=== PATIENT | male | born 1985 | race Hispanic/Latino ===

== ENCOUNTER 2018-01-11 10:16 | Emergency (ER) | payer BC ==
[2018-01-11 10:22] VITALS: BMI 26.9
[2018-01-11] MEDS ORDERED: Sodium Chloride 0.9% 1,000 ML IV STA ×2 (10:35→11:27)
--- NOTE | 2018-01-11 11:16 | ED PDOC ---
HPI: Chest Pain Time Seen by Provider: 01/11/18 10:30 Chief Complaint (Nursing): Chest Pain Chief Complaint (Provider): chest pain History Per: Patient History/Exam Limitations: no limitations Onset/Duration Of Symptoms: Hrs Current Symptoms Are (Timing): Still Present Additional Complaint(s): Ulises Dowd is a 32 year old male, with no significant past medical history, who presents to the emergency department complaining of chest pain and palpitations after taking x10 150mg of Nuvigil tablets overnight while driving from [place] to here. Patient states he was making a short trip over the weekend to visit his girlfriend who lives here. Patient states he was feeling fine until shortly before arriving to [place]. He denies any dizziness, LOC, nausea or vomiting. No further medical complaints. PMD: None provided. Past Medical History Reviewed: Historical Data, Nursing Documentation, Vital Signs Vital Signs: Last Vital Signs Temp 98.5 F 01/11/18 10:22 Pulse 107 H 01/11/18 10:22 Resp 17 01/11/18 10:22 BP 120/68 01/11/18 10:22 Pulse Ox 98 01/11/18 10:36 - Medical History PMH: No Chronic Diseases - Surgical History Surgical History: No Surg Hx - Family History Family History: States: Unknown Family Hx - Allergies Allergies/Adverse Reactions: Allergies Allergy/AdvReac Type Severity Reaction Status Date / Time No Known Allergies Allergy Verified 01/11/18 10:35 Review of Systems ROS Statement: Except As Marked, All Systems Reviewed And Found Negative Cardiovascular: Positive for: Chest Pain, Palpitations Gastrointestinal: Negative for: Nausea, Vomiting Neurological: Negative for: Dizziness, Other (LOC) Physical Exam - Reviewed Nursing Documentation Reviewed: Yes Vital Signs Reviewed: Yes - Physical Exam Appears: Positive for: Well, No Acute Distress Head Exam: Positive for: ATRAUMATIC, NORMAL INSPECTION, NORMOCEPHALIC Skin: Positive for: Normal Color, Warm, Dry Eye Exam: Positive for: Normal appearance, EOMI, PERRL Neck: Positive for: Normal, Painless ROM Cardiovascular/Chest: Positive for: Tachycardia (Sinus tachycardic on EKG with regular rhythm). Negative for: Murmur Respiratory: Positive for: Normal Breath Sounds (clear bilaterally). Negative for: Respiratory Distress Pulses-Radial (L): 2+ Pulses-Radial (R): 2+ Gastrointestinal/Abdominal: Positive for: Normal Exam, Soft. Negative for: Tenderness Back: Positive for: Normal Inspection. Negative for: L CVA Tenderness, R CVA Tenderness Extremity: Positive for: Normal ROM (upper and lower extremities). Negative for: Calf Tenderness, Deformity, Swelling Neurologic/Psych: Positive for: Alert, Oriented - Laboratory Results Result Diagrams: 01/11/18 11:18 01/11/18 11:18 - ECG O2 Sat by Pulse Oximetry: 98 (RA) Pulse Ox Interpretation: Normal Medical Decision Making Medical Decision Making: Time: 10:30 Initial Impression: Sinus tachycardia and chest pain brought on by overdose of stimulant medication. Work up for cardiac injury. Labs, EKG, Ativan and reassess patient. Initial Plan: --VBG --EKG --BMP --Troponin I --CBC w/ differential --Ativan 2 mg IVP --Sodium Chloride 1,000 ml IV 1,000 mls/hr --Urinalysis --Reevaluation Scribe Attestation: Documented by Kamlesh Elias, acting as a scribe for Mary Long MD. Provider Scribe Attestation: All medical record entries made by the Scribe were at my direction and personally dictated by me. I have reviewed the chart and agree that the record accurately reflects my personal performance of the history, physical exam, medical decision making, and the department course for this patient. I have also personally directed, reviewed, and agree with the discharge instructions and disposition. Pt with improved vitals and resolved pain with Ativan x 2. Pt with 2 normal EKGs and 2 negative troponins. All other labs normal. Pt advised to avoid stimulants for 48 hours. Return parameters discussed. Disposition - Clinical Impression Clinical Impression: Chest pain - Disposition Disposition Time: 15:20 Condition: IMPROVED Additional Instructions: Avoid stimulants including coffee for the next 48 hours. Return to the emergency department if symptoms worsen or if new symptoms develop. Instructions: Chest Pain (DC) Forms: [facility] ([place]), [facility] ED School/Work Excuse Print Language: YI
[2018-01-11 11:22] LABS: BASO # 0.1 K/uL (0.0-0.2); BASO % 0.7 % (0.0-2.0); EOS % 0.1 % (0.0-4.0); HEMOGLOBIN 14.4 g/dL (12.0-18.0); LYMPH # 1.7 K/uL (1.0-4.3); LYMPH % 21.7 % (20.0-40.0); MEAN CELL VOLUME 90.6 fl (80.0-94.0); MEAN CORPUSCULAR HEMOGLOBIN 30.6 pg (27.0-31.0); MEAN CORPUSCULAR HGB CONC 33.8 g/dL (33.0-37.0); MONO # 0.4 K/uL (0.0-0.8); MONO % 5.9 % (0.0-10.0); NEUT # 5.5 K/uL (1.8-7.0); NEUT % 71.6 % (50.0-75.0); RBC 4.71 Mil/uL (4.40-5.90); RED CELL DISTRIBUTION WIDTH 12.3 % (11.5-14.5); WHITE BLOOD COUNT 7.6 K/uL (4.8-10.8)
[2018-01-11 11:26] LABS: VENOUS BLOOD GAS BASE EXCESS 3.8 mmol/L (0.0-2.0); VENOUS BLOOD GAS PCO2 56 mmHg (40-60); VENOUS BLOOD GAS PO2 16 mm/Hg (30-55); VENOUS BLOOD PH 7.35 (7.32-7.43)
[2018-01-11 11:43] LABS: URINE BILIRUBIN NEGATIVE (NEGATIVE); URINE BLOOD NEGATIVE (NEGATIVE); URINE CLARITY CLEAR (Clear); URINE COLOR STRAW (YELLOW); URINE GLUCOSE (UA) NEG (Normal); URINE LEUKOCYTE ESTERASE NEG Leu/uL (Negative); URINE PROTEIN NEGATIVE (NEGATIVE); URINE UROBILINOGEN 0.2-1.0 mg/dL (0.2-1.0)
[2018-01-11 11:50] LABS: BLOOD UREA NITROGEN 12 mg/dl (9-20); CALCIUM 9.5 mg/dL (8.4-10.2); GFR NON-AFRICAN AMERICAN > 60
[2018-01-11 14:18] LABS: SQUAMOUS EPITHIAL 2 /hpf (0-5); URINE BACTERIA OCC (<OCC)
--- NOTE | 2018-01-11 15:04 | RAD ---
Date of service: 01/11/2018 HISTORY: possible admission COMPARISON: No prior. FINDINGS: LUNGS: No active pulmonary disease. PLEURA: No significant pleural effusion identified, no pneumothorax apparent. CARDIOVASCULAR: No aortic atherosclerotic calcification present. Normal cardiac size. No pulmonary vascular congestion. OSSEOUS STRUCTURES: No significant abnormalities. VISUALIZED UPPER ABDOMEN: Normal. OTHER FINDINGS: None. IMPRESSION: No active disease.
[2018-01-11 15:55] VITALS: BP 138/68; PULSE 103; RESP 17; TEMP 98.2; O2SAT 100
--- NOTE | 2018-01-12 08:44 | CARD ---
APPROVED REPORT Date of service: 01/11/2018 EKG Measurement Heart [id number] <Conclusion> Sinus tachycardia Nonspecific T wave abnormality Abnormal ECG
--- NOTE | 2018-01-12 08:48 | CARD ---
APPROVED REPORT Date of service: 01/11/2018 EKG Measurement Heart [id number] <Conclusion> Sinus tachycardia Incomplete right bundle branch block Borderline ECG
== END 2018-01-11 15:45 | disposition home or self-care (01) ==
LOC: H.ER 10:16
DX: R07.89 Other chest pain (principal)
CPT/HCPCS: 71045; 80048; 81003; 82803; 84484; 85025; 93005; 96374; 96376; 99284; J2060; J7030